=== PATIENT | female | born 1980 | race Caucasian/White ===

== ENCOUNTER → 2022-08-21 | Outpatient (REF) | payer BC ==
[2022-08-21 17:15] LABS: HEMATOCRIT 42.6 % (36.0-47.0); HEMOGLOBIN 13.8 g/dl (12.0-15.5); MEAN CORPUSCULAR HEMOGLOBIN 28.9 pg (27.0-33.0); MEAN CORPUSCULAR HGB CONC 32.4 g/dl (32.0-36.5); MEAN CORPUSCULAR VOLUME 89.3 fl (80.0-96.0); PLATELET COUNT, AUTOMATED 265 10^3/uL (150-450); RED BLOOD COUNT 4.77 10^6/uL (4.00-5.40); WHITE BLOOD COUNT 4.8 10^3/uL (4.0-10.0)
[2022-08-21 17:43] LABS: APPEARANCE, URINE CLEAR (CLEAR); BACTERIA, URINE AUTO NEGATIVE (NEGATIVE); BILIRUBIN, URINE AUTO NEGATIVE (NEGATIVE); BLOOD, URINE BLOOD 1+ (NEGATIVE); COLOR, URINE YELLOW (YELLOW); GLUCOSE, URINE (UA) AUTO NEGATIVE (NEGATIVE); KETONE, URINE AUTO TRACE mg/dL (NEGATIVE); LEUKOCYTE ESTERASE, URINE AUTO NEGATIVE (NEGATIVE); MUCUS, URINE SMALL (NEGATIVE); NITRITE, URINE AUTO NEGATIVE (NEGATIVE); PROTEIN, URINE AUTO NEGATIVE (NEGATIVE); RBC, URINE AUTO 2 /HPF (0-3); SPECIFIC GRAVITY URINE AUTO 1.025 (1.002-1.035); SQUAMOUS EPITHELIAL CELL UR AU 0 /HPF (0-6); UROBILINOGEN, URINE AUTO 0.2 mg/dL (0.0-2.0); WBC, URINE AUTO 1 /HPF (0-3)
[2022-08-21 19:31] LABS: ATYPICAL LYMPH 2 % (0-5); BASOPHILS 4 % (0-1); EOSINOPHILS 3 % (0-3); LYMPHOCYTES 24 % (16-44); MONOCYTES 8 % (0-5); NEUTROPHILS 59 % (28-66)
[2022-08-21 19:32] LABS: PLATELET ESTIMATE NORMAL (NORMAL)
[2022-08-21 19:50] LABS: ERYTHROCYTE SEDIMENTATION RATE 43 mm/hr (0-20)
[2022-08-21 19:51] LABS: C REACTIVE PROTEIN QUANTITATIV 3.4 MG/DL (<1.0)
[2022-08-21 19:52] LABS: COMPLEMENT C3 173.4 MG/DL (90.0-170.0); COMPLEMENT C4 56.6 MG/DL (12-36)
[2022-08-21 19:58] LABS: TOTAL PROTEIN,RANDOM URINE 21.4 MG/DL (0.0-14.0)
[2022-08-21 20:03] LABS: CREATININE,RANDOM URINE 172.9 MG/DL
[2022-08-28 11:29] LABS: DRVV SCREEN 45.3 SEC
[2022-08-28 12:10] LABS: PTT LUPUS TYPE ANTICOAG SCREEN 1.2 (0-1.2)
[2022-08-28 12:25] LABS: DRVV CONFIRM 38.1 SEC; LUPUS CONFIRM RATIO 1.1
[2022-08-28 12:26] LABS: NORMALIZED RATIO 1.09 (0.00-1.20)
== END ==
LOC: M SFHCRHEU 14:38
PROVIDERS: ATTEND Internal Medicine
DX: R76.8 Other specified abnormal immunological findings in serum (principal); R22.0 Localized swelling, mass and lump, head